=== PATIENT | male | born 1950 | race Caucasian/White ===

== ENCOUNTER 2016-10-01 16:44 | Inpatient (IN) ==
[2016-10-01] MEDS ORDERED: ASPIRIN 325 MG TABLET PO STA (17:05)
--- NOTE | 2016-10-01 17:08 | EKG Report ---
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
--- NOTE | 2016-10-01 17:08 | EKG Report ---
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
[2016-10-01] MEDS ORDERED: ASPIRIN 325 MG TABLET ONE (17:13)
[2016-10-01] MEDS ORDERED: DILTIAZEM 50 MG/10 ML VIAL IV STA (17:13)
[2016-10-01 17:30] LABS: Basophils % 0.4 % (0.0-0.8); Eosinophils # 0.1 10*3/uL (0.0-0.87); Eosinophils % 0.9 % (0.00-10.9); Hematocrit 45.8 VOL% (42.0-52.0); Hemoglobin 15.9 GM/DL (14.0-18.0); Immature Granulocytes % 0.4 %; Immature Granulocytes Absolute 0.05 #; Lymphocytes # 1.7 10*3/uL (1.4-4.0); Lymphocytes % 14.9 % (21.2-54.2); Mean Corpuscular HGB Conc 34.7 GM/DL (32-36); Mean Corpuscular Hemoglobin 32 PG (27-34); Mean Corpuscular Volume 91.2 FL (87-102); Mean Platelet Volume 10.5 FL (9.6-12.0); Monocytes # 0.7 10*3/uL (0.11-0.8); Monocytes % 6.3 % (1.7-12.7); Neutrophils # 8.7 10*3/uL (1.4-7.4); Neutrophils % 77.1 % (38.7-73.9); Platelet Count 199 10*3/uL (130-400); Red Blood Count 5.02 10*6/uL (3.8-5.5); Red Cell Distribution Width 12.5 % (9.3-17.3); White Blood Count 11.2 10*3/uL (4.5-13.71)
[2016-10-01] MEDS ORDERED: DILTIAZEM 50 MG/10 ML VIAL IV ONE (17:49)
[2016-10-01 17:57] LABS: Calcium 9.2 MG/DL (8.5-10.1); Osmolality,Calculated 297.3 MOS/KG (273-304); Potassium 4.6 MMOL/L (3.5-5.1)
[2016-10-01] MEDS ORDERED: ENOXAPARIN 100 MG/ML SYRINGE SUBCUT STA (18:11)
--- NOTE | 2016-10-01 18:13 | EKG Report ---
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
[2016-10-01] MEDS ORDERED: MAGNESIUM SULF RIDER 4 GM in PREMIX 1 EACH IV PRN (18:14)
[2016-10-01] MEDS ORDERED: MAGNESIUM SULF RIDER 2 GM in PREMIX 1 EACH IV PRN ×2 (18:14→22:56)
[2016-10-01] MEDS ORDERED: MORPHINE 2 MG/1 ML SYRINGE IV PRN (18:14)
[2016-10-01] MEDS ORDERED: ONDANSETRON 4 MG/2 ML VIAL IV PRN (18:14)
--- NOTE | 2016-10-01 18:14 | Emergency Department Note ---
IEstela Kasabria, am scribing for, and in the presence of, Marcos Santa M.D. 17:18. IKiet Howard T, M.D., personally performed the services described in this documentation, ascribed by Kareem Palmer in my presence, and it is both accurate and complete [id number] . Arrival - Arrival Chief Complaint: Chest Pain Stated Complaint: CHEST PAINS ED Nursing Triage Note: Pt c/o chest pain that started in his back and radiates through to his chest since yesterday. Denies SOB Mode of Arrival: Ambulatory Limitations: No Limitations Source: Patient Time Seen by Provider: 10/01/16 17:04 - History of Present Illness HPI Narrative: This is a 65 y/o white male presenting to the ED with c/o back pain between his shoulder blades that radiates to his midsternal chest. He states the pain onset yesterday. He went to play golf and the pain went away. When he woke up this morning the pain onset again. Pt states he feels better after burping. He denies fever, chills, nausea, vomiting, diarrhea, abdominal pain, [place], vision change, dysuria, and pedal edema. Pt has diabetes and HTN which he is compliant on his medications. Consistency: constant Severity: moderate Allergies/Adverse Reactions: Allergies Allergy/AdvReac Type Severity Reaction Status Date / Time No Known Allergies Allergy Verified 10/01/16 16:48 Home Medications: Home Medications Medication Instructions Recorded Confirmed Type Aspirin EC Tab 81 mg PO DAILY 10/01/16 10/01/16 History Bupropion HCl [Bupropion Xl] 150 mg PO DAILY 10/01/16 10/01/16 History Diltiazem HCl [Diltiazem ER (24 240 mg PO DAILY 10/01/16 10/01/16 History hr)] Simvastatin 80 mg PO DAILY 10/01/16 10/01/16 History metFORMIN [Glucophage] 1,000 mg PO BID W/MEALS 10/01/16 10/01/16 History Review of System - Review of System 12 point system: reviewed and no additional remarkable complaints except as stated - Review of System Constitutional: Absent: chills, fever, weakness Eyes: Absent: vision change Head/Ears/Nose/Throat: Absent: earache, nasal drainage Respiratory: Absent: cough, wheezing Cardiovascular: Present: chest pain (midsternal ). Absent: dyspnea on exertion , syncope Gastrointestinal: Absent: abdominal pain, nausea, vomiting, diarrhea Genitourinary male: Absent: dysuria Musculoskeletal: Present: back pain, upper back pain (between shoulder blades ) . Absent: arm pain Skin: Absent: rash Neurological: Absent: headache, weakness, numbness, confusion, abnormal gait, vertigo Psychiatric: Absent: anxiety Endocrine: Absent: fatigue Hematological/Lymphatic: Absent: easy bleeding Allergic/Immunologic: Absent: facial swelling Medical,Surgical,& Family Hx - Medical History Cardio: History of: Hypertension Endocrine: History of: Diabetes Mellitus (NIDDM), Dyslipidemia - Family History Family History: Reports;: Family Heart Disease - Social History Smoking Status: Never smoker Exam Vital Signs: Vital Signs Temperature 96.7 F L 10/01/16 17:44 Pulse Rate 111 H 10/01/16 17:44 Respiratory Rate 20 10/01/16 17:44 Blood Pressure 174/119 10/01/16 17:44 O2 Sat by Pulse Oximetry 100 10/01/16 17:30 - General General appearance: alert, in no apparent distress - Head Head exam: Present: atraumatic, normocephalic, normal inspection - Eye Eye exam: Present: normal appearance, PERRL, EOMI - ENT ENT exam: Present: normal exam, normal oropharynx, mucous membranes moist, TM's normal bilaterally, normal external ear exam - Neck Neck exam: Present: normal inspection, full ROM, tenderness. Absent: trachea midline - Chest Chest inspection: Present: normal inspection, symmetric chest wall rise. Absent : tenderness - Respiratory Respiratory exam: Present: normal lung sounds bilaterally - Cardiovascular Cardiovascular exam: Present: normal rhythm, tachycardia, normal heart sounds. Absent: regular rate - Abdominal Exam Abdominal exam: Present: soft, normal bowel sounds. Absent: distention, tenderness, guarding - Extremities Exam Extremities exam: Present: normal inspection, full ROM, normal capillary refill. Absent: tenderness, pedal edema, calf tenderness - Back Exam Back exam: Present: normal inspection, full ROM. Absent: tenderness - Neurological Exam Neurological exam: Present: alert, oriented X3, CN II-XII intact, normal gait, reflexes normal - Psychiatric Psychiatric exam: Present: normal affect, normal mood - Skin Skin exam: Present: warm, dry, intact, normal color. Absent: rash Course Course Narrative: Medical decision making: Patient's heart rate improved after calcium channel lindsey however elevated troponin suggests an NSTEMI. Discussed with Dr. Falcon who recommended admission to cardiology with Lovenox, beta lindsey, MONTSERRAT inhibitor. - Reevaluation(s) Reevaluation #1: repeat EKG, rate 101, still Afib, ST depression V3 Results - Labs CBC & BMP: 10/01/16 17:25 10/01/16 17:25 Lab Results: I have reviewed the patients labs Labs: Trop 11.2 - EKG EKG results: interpreted by RADHA, normal QRS EKG shows: tachycardia, atrial fibrillation Disposition Clinical Impression: Chest pain, NSTEMI (non-ST elevated myocardial infarction), Atrial fibrillation Case discussed with: patient, patient's family Disposition: Disch/Xfer-Ipshort Term Hos Condition: Guarded Time of Disposition: 18:14
--- NOTE | 2016-10-01 18:15 | XRay Report ---
XR chest 2V Indication: Chest pain. Comparison: None. Technique: PA and lateral chest x-ray was performed. Findings: The heart size is within normal limits. The mediastinal contour demonstrates no significant abnormality. The lungs are clear. Bones and soft tissues demonstrate no acute abnormality. Impression: 1. No active cardiopulmonary disease. 10/01/2016 6:11 PM PROCEDURE INTERPRETED AT [facility] DEPARTMENT OF RADIOLOGY Final Report Signed by: Dr. Galdino James
[2016-10-01] MEDS ORDERED: METOPROLOL TARTRATE 50 MG TABLET PO STA (18:18)
[2016-10-01] MEDS ORDERED: SODIUM CHLORIDE 0.45% 1,000 ML IV SCH (18:30)
[2016-10-01] MEDS ORDERED: NITROGLYCERIN SL 0.4 MG TABLET SL ONE (19:42)
[2016-10-01] MEDS ORDERED: NITROGLYCERIN SL 0.4 MG TABLET SL STA (19:47)
[2016-10-01] MEDS ORDERED: LIDOCAINE 1% 20 ML VIAL ONE (22:54)
[2016-10-01] MEDS ORDERED: POTASSIUM CHLORIDE RIDER 10 MEQ in PREMIX 1 EACH IV PRN (22:56)
[2016-10-01] MEDS ORDERED: MIDAZOLAM 2 MG/2 ML VIAL ONE (23:02)
[2016-10-01] MEDS ORDERED: fentaNYL 100 MCG/2 ML VIAL ONE (23:02)
--- NOTE | 2016-10-01 23:03 | Cardiology History & Physical ---
Assessment and Plan (1) NSTEMI (non-ST elevated myocardial infarction) Status: Acute Assessment and plan: 7. Progressive increased troponins. His ECG without acute changes. Patient is current catheterization discussed above. Current Visit: Yes (2) Chest pain Status: Acute Assessment and plan: Chest pain this intermittent. It is worsened tonight because troponins are increased. Think he needs Percocet has coronary intervention hopefully tonight. He agrees to carry catheterization. Current Visit: Yes (3) Hypertension Status: Acute Assessment and plan: We'll continue his home medications and manage his blood pressure status. Current Visit: Yes (4) Diabetes mellitus Status: Acute Assessment and plan: Continue with therapy will put on sliding-scale. Current Visit: Yes Qualifiers: Diabetes mellitus type: type 2 (5) Dyslipidemia Status: Acute Assessment and plan: He has been on simvastatin. We'll need to check this. Current Visit: Yes (6) Atrial fibrillation Status: Acute Assessment and plan: Duration is unknown. We'll treat accordingly. Current Visit: Yes History of Present Illness Chief complaint: chest pain History of present illness: Mr. Alcala is a 65 year old male who presented done earlier to the [facility] emergency room with pain chest pain. He was found to be in atrial fibrillation but no acute ECG changes.. He was stable with slightly increased troponin. The patient is not having chest pains that time he was admitted for evaluation. Denied prior to my seeing him he is had more severe chest pain is 7 out of 10 in his troponin is increased higher to 18.1. Because of this it was felt that he should have cart catheterization. Actually his pain started yesterday and mid back resolved. This morning after getting up around 8 a.m. he had back pain radiating to his chest. He had no radiating pains. This time he is having minimal pain. He's had no prior chronic history cardiac testing. Needs cart catheterization emergently causes continued pain and increasing troponin. Discussed cardiac catheterization with he and the family including the indication procedure have be carried out in the wrist. I discussed cardiac catheterization and percutaneous coronary intervention with the patient and available family. I reviewed with them the indications for the procedure and the basis of how the procedure would be carried out. I also reviewed with them the risk of the procedure which include but not necessarily limited to access site bleeding, bruising, pain, swelling or vascular injury that may require emergency vascular surgery, blood transfusion, or thrombin injection. Also discussed the possibility of stroke, myocardial infarction, arrhythmia which may require electrocardioversion, and the possibility of dye reaction that would require medical therapy. Also discussed the possibility of coronary artery injury, ruptured, closure or perforation that may require emergency bypass surgery. We also discussed the possibility of from a major complication. They voice understanding and agree to proceed. Home Medications Medication Instructions Recorded Confirmed Type Aspirin EC Tab 81 mg PO DAILY 10/01/16 10/01/16 History Bupropion HCl [Bupropion Xl] 150 mg PO DAILY 10/01/16 10/01/16 History Diltiazem HCl [Diltiazem ER (24 240 mg PO DAILY 10/01/16 10/01/16 History hr)] Simvastatin 80 mg PO DAILY 10/01/16 10/01/16 History metFORMIN [Glucophage] 1,000 mg PO BID W/MEALS 10/01/16 10/01/16 History Allergies Allergy/AdvReac Type Severity Reaction Status Date / Time No Known Allergies Allergy Verified 10/01/16 16:48 Review of systems: Constitutional: Denies anorexia, chills, fatigue, fever, frequent falls, night sweats, weight gain, weight loss Eyes: Denies visual changes or loss of vision Ears: Denies decreased hearing, vertigo Nose, mouth and throat: Denies dysphagia, epistaxis, headaches, neck pain, tongue swelling, Neck: Denies thyromegaly or masses. No stiffness. Cardiovascular: as per HPI Respiratory: Denies cough, dyspnea, hemoptysis, dyspnea on exertion, wheezing, snoring Gastrointestinal: Denies abdominal pain, constipation, dyspepsia, dysphagia, hematemesis, hematochezia, melena, nausea, vomiting Genitourinary: Denies dysuria, hematuria, nocturia Musculoskeletal: Denies arthralgias, joint swelling, muscle weakness, myalgias Neurological: denies abnormal gait, abnormal speech, confusion, convulsions, frequent falls, headaches, memory loss, syncope Psychiatric: Denies anxiety, confusion, depression Endocrine: Denies cold intolerance, fatigue, heat intolerance Hematologic/Lymphatic: Denies easy bleeding, easy bruising Dermatologic: Denies Rash, itching, shingles Medical,Surgical,& Family Hx - Medical History Cardio: History of: Hypertension Endocrine: History of: Diabetes Mellitus (NIDDM), Dyslipidemia - Family History Family History: Reports;: Family Heart Disease - Social History Smoking Status: Never smoker Frequency of Alcohol Use: None Type of Drug Use: None Marital Status: Lives With:: Spouse Functional capacity: independent ambulation Cardiology Physical Exam - Constitutional Vitals: Vital Signs Temp Pulse Resp BP Pulse Ox 96.7 F L 81 18 102/62 98 10/01/16 17:44 10/01/16 20:20 10/01/16 20:20 10/01/16 20:20 10/01/16 20:20 Exam: General appearance: normal weight, no acute distress Head exam: normal inspection, atraumatic Eye exam: Pupils are equal and reactive. EOMI. There is no trauma. Ear exam: Anatomically normal. Normal auditory acuity to conversation. Oral exam: No significant oral lesions. Neck exam: normal inspection no JVD. No carotid bruit. Trachea is in midline. Respiratory exam: clear to auscultation bilaterally posteriorly and anteriorly with good air movement. No rales, rhonchi or wheezes. Cardiovascular exam: regular rate and rhythm, no murmur or gallop or rub. No precordial lift. No bruits over the major arteries. Chest wall/torso: Anatomically normal. No tenderness, deformity Peripheral Pulses: 2+ throughout. GI/Abdominal exam: normal bowel sounds, soft and nontender, no abdominal bruits or pulsatile masses. Musculoskeletal/Extremities exam: normal inspection without edema or cyanosis. No deformities or trauma. Neurological exam: alert, oriented X3. There is no gross neurologic deficits. Psychiatric exam: normal affect, normal mood. Cognitive function is grossly intact. Skin exam: normal color, warm. No rashes or other skin lesions. Result/EKG - Labs CBC & BMP: 10/01/16 17:25 10/01/16 17:25 Lab Results: I have reviewed the past 24 hour labs (elevated troponin) Labs: Laboratory Results - last 24 hr 10/01/16 20:35 Troponin I 18.100 H D - Impressions Impressions: ECG for atrial fibrillation without acute ischemic changes.
--- NOTE | 2016-10-01 23:09 | History and Physical Update ---
Sedation H&P Update - History and Physical H&P was reviewed, the patient examined and there: are no changes in the patients condition since last H&P was completed. - Dictation Physical: refer to scanned H&P, refer to H&P completed by admitting physician - Physical Exam Mental Status: alert and oriented Heart: regular rate and rhythm Lung: clear to auscultation Abdomen: within normal limits Vitals: within normal limits History and Physical Changes: None. - Sedation Plan for Sedation: moderate Patient Consent: Procedure disscussed with patient and patinet has consented., Risks and benefits were discussed with patient,including infection,, bleeding, injury to surrounding structures, seizure, temporary nerve, Patient understands and accepts potential risks/benefits and agrees to, proceed. ASA Class: IV Airway Assessment: Class III: Soft palate, base of uvula visible
[2016-10-01] MEDS: LISINOPRIL 5 MG TABLET PO SCH (23:12)
[2016-10-01] MEDS: METOPROLOL TARTRATE 50 MG TABLET PO SCH (23:12)
[2016-10-01] MEDS ORDERED: diphenhydrAMINE CAP 25 MG CAPSULE PO ONE (23:30)
[2016-10-01] MEDS ORDERED: DIAZEPAM 5 MG TABLET PO ONE (23:30)
[2016-10-01] MEDS ORDERED: TIROFIBAN 5,000 MCG/100 ML PREMIX IV ONE (23:40)
[2016-10-02] MEDS ORDERED: GLUCAGON 1 MG VIAL IM PRN ×2 (00:26→15:49)
[2016-10-02] MEDS ORDERED: DEXTROSE 50% 25 GM/50 ML VIAL IV PRN ×2 (00:26→15:49)
[2016-10-02] MEDS ORDERED: HYDROmorphone 2 MG/1 ML VIAL IV PRN (00:26)
[2016-10-02] MEDS ORDERED: ACETAMINOPHEN 325 MG TABLET PO PRN (00:26)
[2016-10-02] MEDS ORDERED: TICAGRELOR 90 MG TABLET ONE (00:27)
[2016-10-02] MEDS ORDERED: SODIUM CHLORIDE 0.9% 1,000 ML IV SCH (00:30)
[2016-10-02] MEDS ORDERED: TIROFIBAN 5,000 MCG/100 ML PREMIX IV SCH ×2 (00:35→23:46)
--- NOTE | 2016-10-02 00:39 | Operative Note ---
Date of procedure: 10/02/16 Procedure Preformed: Left heart catheterization coronary angiography. No LV gram was carried out. PCI with stent placement in 2 locations of the RCA. Surgeon / Physician: Bennie Falcon Post-op diagnosis: same Findings: High-grade coronary disease of the RCA successful PCI. Please see full report. Specimens: none sent Estimated blood loss: minimal Condition: stable Anesthesia: local, conscious sedation Disposition: floor
--- NOTE | 2016-10-02 00:43 | Cardiac Catheterization ---
Date of Procedure:: 10/02/16 Pre-op Diagnosis: Non-ST segment elevation myocardial infarction. Post-op diagnosis: same Procedure: LEFT HEART CATHERIZATION History: 65-year-old man with back and chest pain with elevated troponins. He' s had persistent chest pain. Pre-Op diagnosis: Non-ST segment elevation myocardial infarction, coronary artery disease. Postoperative diagnosis: Same Procedures: 1. Left heart catheterization. 2. Left ventricular angiogram. 3. Selective left and right coronary angiograms. 4. Percutaneous coronary intervention with stents in RCA 5.. Right common femoral artery angiogram with Angio-Seal hemostasis. Equipment: 6 Libyan arterial sheath, 6 Libyan diagnostic pigtail catheter, JL4 and JR4 diagnostic catheters. A 6 Libyan Angio-Seal hemostatic device. For percutaneous coronary intervention: JR4 PTCA guiding catheter, the water flexed PTCA guidewire, Xenith Bankla intracoronary guide catheter, 2.5 x 15 mm Rx apex balloon, 3.0 x 16 mm Synergy GABE, a second 3.0 x 16 mm Synergy GABE Medications: Preoperative Benadryl and Valium given by mouth. Lidocaine 1% local anesthesia 10 mls administered by myself. Intraprocedure patient received Versed 1 milligrams IVP, fentanyl 50 micrograms IVP. For PCI: Aggrastat bolus 50 mL IIVAggrastat infusion,17.3 mL/hour, Brilinta 180 mgms. Complications: None immediate. Contrast: Omnipaque 250 milliliters. Description of procedure: After informed consent the patient was given preoperative medications and brought to the catheterization laboratory where their right groin was prepped and draped in usual fashion. IV sedation was then obtained after which local anesthesia was administered at the right groin over the right common femoral artery. Using modified Seldinger technique the right common femoral artery was cannulated with 6 Libyan arterial sheath placed. The JL4 diagnostic coronary catheter was then advanced through the sheath in a retrograde approach and used to cannulate the left coronary artery of which angiograms were obtained in multiple projections. This catheter was then removed. The JR 4 diagnostic coronary catheter was then advanced retrograde through the aorta and used to measure left ventricular pressures were put percent aortic root and then to cannulate the right coronary artery of which angiograms were obtained in multiple projections. (Actually the right coronary was examined before the left coronary system). Angiograms were then reviewed. The right coronary catheter was pulled back into the sheath where a right common femoral artery angiogram was obtained after which the catheter was removed. Intervention of the RCA then was carried out with advancing the JR4 guide catheter through which a pro-water flexed guidewires advanced crossing the distal stenosis into the distal RCA. The apex 2.5 x 15 mm apex balloon was then advanced across the distal total stenosis and 4 inflations was carried out in this area and into what was a PDA/PL branch. Peak pressure was 14 rebecca with the longest inflation time of 32 seconds. This balloon was removed and we attempted to advance a 3.0 x 16 mm Synergy GABE but was unable to pass what was a more proximal mid area tortuosity calcification. He was also noted that there was probably say percent stenosis in the mid RCA. We used a 2.5 x 15 m apex balloon To inflations to a maximum pressure of 20 rebecca for mass inflation time of 30 seconds. We again attempted to advance the 3.0 x 16 mm Synergy GABE to the distal RCA and felt again to do so. At this time we asked advanced a Guidezilla PTCA guide catheter into the RCA. We will then able to advance the 3.0 x 16 mm surgery GABE and deployed this across the distal RCA stenosis to 14 rebecca for 25 seconds. We then used this balloon pulled back into the mid RCA stenosis. At 12 atmospheric inflation for 28 seconds. We then did stasis and advanced another 3.6 x 16 mm Synergy GABE and deployed this in the mid RCA for 16 rebecca for 30 seconds. At this time final angiograms were obtained. The guidewire as well as the Guidezilla and balloon catheter were removed. While angiograms were obtained. Angio-Seal hemostasis was carried out of the right common for artery. Hemodynamic data: LV 142/-21 , EDP 6 ; AO root 138/82 , mean 100 . Left ventricular angiogram: Not done to conserve contrast with his elevated creatinine. Left main coronary artery angiogram: Left main coronary was a large caliber vessel that bifurcated LAD and circumflex arteries. He was without stenosis. Left anterior descending artery angiogram: The LAD was a medium large size vessel proximally. It extended to the posterior apex were tapered into a much smaller vessel. Diagonal branches are small caliber vessels. There is little irregularities less than 10% stenosis present. Circumflex artery angiogram: Circumflex artery proximally was a large caliber vessel. It is nondominant vessel. First obtuse marginal branch and a medium large size vessel bifurcating. Beyond this is a artery terminated in atrial branch and a small medium caliber obtuse marginal branch. There was probably some calcification and cervix artery and luminal irregularities in the circumflex artery proper especially proximally. One branch of the first obtuse marginal branch had less than 50% stenosis. Right coronary artery angiogram: RCA was a medium caliber vessel and dominant. There is diffuse calcification and it was somewhat tortuous. Mid vessel is a 70 % stenosis with EVELYN 2 flow. Distally the RCA was totally occluded with EVELYN 0 flow. PCI of RCA: The mid lesion say percent was dilated as described above to 0% residual stenosis. Initial EVELYN 2 flow with a residual of EVELYN-3 flow. The distal total 100% occlusion and 0 point EVELYN flow had a residual of 0% stenosis and EVELYN-3 flow. Right common femoral artery angiogram: Right common for artery is widely patent bifurcating superficial femoral artery and profundus branch. Sheath was inserted in the common for artery. Impression: 1. Left ventricular angiogram not done. 2. LVEDP is normal at 6 mmHg 3. There is no gradient across the aortic valve. 4. Left main coronary is widely patent without stenosis. 5. LAD with less than 10% stenosis. 6. Circumflex artery will irregularities and mild calcification. One branch of the first obtuse marginal branch less than 50% stenosis. 7. RCA is dominant with diffuse calcification, 70% mid stenosis with EVELYN 2 flow, a distal stenosis of 100% with EVELYN 0 flow. 8. Successful PCI and stent placement in the mid RCA with say percent lesion dilated 0% residual stenosis and EVELYN-3 flow residual. 9. Successful PCI and stent placement in the distal RCA of total occlusion dilated 07 residual stenosis and initial 0% EVELYN flow with a residual of EVELYN-3 flow. 10. Successful Angio-Seal hemostasis. Discussion: Will monitor the patient after catheterization intervention. Risk factor modification a course of need to carry out. Implants: See above. Anesthesia: local, moderate conscious sedation Surgeon / Physician: Bennie Falcon Dog Obedience Instructor: other (Estephania Peterson) Estimated blood loss: minimal Specimens: none sent Condition: stable Disposition: floor - Medications / Follow-up
[2016-10-02 05:13] LABS: Basophils % 0.2 % (0.0-0.8); Eosinophils % 0.4 % (0.00-10.9); Hematocrit 42.7 VOL% (42.0-52.0); Hemoglobin 14.7 GM/DL (14.0-18.0); Immature Granulocytes % 0.3 %; Immature Granulocytes Absolute 0.03 #; Lymphocytes # 0.8 10*3/uL (1.4-4.0); Lymphocytes % 9.4 % (21.2-54.2); Mean Corpuscular HGB Conc 34.4 GM/DL (32-36); Mean Corpuscular Hemoglobin 31 PG (27-34); Mean Corpuscular Volume 90.3 FL (87-102); Mean Platelet Volume 10.3 FL (9.6-12.0); Monocytes # 0.8 10*3/uL (0.11-0.8); Monocytes % 8.8 % (1.7-12.7); Neutrophils # 7.2 10*3/uL (1.4-7.4); Neutrophils % 80.9 % (38.7-73.9); Platelet Count 183 10*3/uL (130-400); Red Blood Count 4.73 10*6/uL (3.8-5.5); Red Cell Distribution Width 12.6 % (9.3-17.3)
[2016-10-02 05:50] LABS: Risk Ratio 4.13; VLDL CHOLESTEROL 58.2 MG/DL
[2016-10-02 05:56] LABS: Calcium 8.5 MG/DL (8.5-10.1); Osmolality,Calculated 290.5 MOS/KG (273-304); Potassium 4.3 MMOL/L (3.5-5.1)
[2016-10-02 06:16] LABS: CKMB % 6.8 %
[2016-10-02 06:22] LABS: Troponin I Only 42.4 NG/ML (0.00-0.045)
--- NOTE | 2016-10-02 07:49 | EKG Report ---
Stationary ECG Study [facility] Test Date: 10/02/2016 7:48:12 AM Pat Name: JUAN SANTOS Department: Room: 277 Gender: M Student Counselor: CHUY : 1950 Requested by: Marcos López Order Number: [id number] Reading MD: EMILY ZIEGLER Intervals [place] Rate: 89 P: 999 [place]: 0 QRS: 40 QRSD: 106 T: 243 QT: 370 QTc: 417 Interpretive Statements ATRIAL FIBRILLATION at [address] DEVIATION AND MODERATE T-WAVE ABNORMALITY, CONSIDER ANTERIOR ISCHEMIA Electronically Signed On 10-02-16 12:22:18 MARKET DIRECTOR by EMILY ZIEGLER [id number]
[2016-10-02] MEDS ORDERED: ASPIRIN EC 81 MG TABLET PO SCH (09:00)
[2016-10-02] MEDS ORDERED: SIMVASTATIN 80 MG TABLET PO SCH (09:00)
[2016-10-02] MEDS: ASPIRIN EC 81 MG TABLET PO SCH (10:22)
[2016-10-02] MEDS: DILTIAZEM CD 240 MG CAPSULE PO SCH (10:23)
[2016-10-02] MEDS: PANTOPRAZOLE 40 MG TABLET PO SCH (10:23)
[2016-10-02] MEDS: buPROPion XL 150 MG TABLET PO SCH (10:24)
[2016-10-02] MEDS: METOPROLOL TARTRATE 50 MG TABLET PO SCH ×2 (10:25→21:43)
[2016-10-02] MEDS: LOSARTAN 25 MG TABLET PO SCH (10:25)
[2016-10-02] MEDS: LISINOPRIL 5 MG TABLET PO SCH (10:26)
[2016-10-02] MEDS: TICAGRELOR 90 MG TABLET PO SCH ×2 (10:26→21:42)
[2016-10-02] MEDS: ENOXAPARIN 100 MG/ML SYRINGE SUBCUT SCH ×2 (10:29→21:43)
--- NOTE | 2016-10-02 11:32 | History and Physical Update ---
Sedation H&P Update - History and Physical H&P was reviewed, the patient examined and there: are no changes in the patients condition since last H&P was completed. - Dictation Physical: refer to H&P completed by admitting physician - Physical Exam Mental Status: alert and oriented Heart: regular rate and rhythm Lung: clear to auscultation Abdomen: within normal limits Vitals: within normal limits - Sedation Plan for Sedation: moderate Patient Consent: Procedure disscussed with patient and patinet has consented., Risks and benefits were discussed with patient,including infection,, bleeding, injury to surrounding structures, seizure, temporary nerve, Patient understands and accepts potential risks/benefits and agrees to, proceed. ASA Class: II Airway Assessment: Class II: Soft palate, uvula, fauces visible
--- NOTE | 2016-10-02 16:02 | Cardiology Progress Note ---
I, Cassandra Farias RN, am scribing for, and in the presence of, Bennie Falcon MD 15:54. Assessment and Plan (1) Chest pain Status: Resolved Assessment and plan: Chest pain resolved after heart cath. This is stable and probably secondary to his coronary disease. This note is his diuresis. Current Visit: Yes (2) NSTEMI (non-ST elevated myocardial infarction) Status: Acute Assessment and plan: Patient is status post PCI with two drug eluding stents to RCA. Current Visit: Yes (3) Atrial fibrillation Status: Acute Assessment and plan: New onset Atrial fib with a controlled ventricular rate. Will adjust medications as necessary. Duration is actually unknown since the patient is asymptomatic with this. I think we will need to have the patient medically atrial fibrillation for at least 3 weeks and started on antiarrhythmic thereafter. We'll start Xarelto 10 mg by mouth daily with is doing to platelet therapy. Current Visit: Yes (4) Hypertension Status: Chronic Assessment and plan: Will restart home medications, and adjust as needed. Blood pressure is stable at this time. Current Visit: Yes (5) Diabetes mellitus Status: Chronic Assessment and plan: Glucose monitoring controlled is off his metformin post catheterization. We will place the patient on sliding scale. Current Visit: Yes Qualifiers: Diabetes mellitus type: type 2 (6) Dyslipidemia Status: Chronic Assessment and plan: LDL and triglycerides are elevated, will adjust medications. Will switch him from simvastatin to Crestor. He is not managed adequately with this new medication we may have to add Zetia. Current Visit: Yes Cardiology - PN: Subj Interval history: Patient personally interviewed and examined by me in chart reviewed. Patient is status post heart cath with two drug eluding stents to the RCA last night. Patient is without complaints this morning. He denies chest pain, shortness of breath and right groin is stable without bruising or bleeding. He remains in Atrial fib with a controlled ventricular rate. He states that he had no prior history of irregular heart rhythm. Echo is pending. Current medications: Losartan 12.5 mg Daily, Lisinipril 5mg BID, Lovenox 100mg BID, Wellbutrin 150 mg Daily, Lopressor 50 mg BID, Cardizem CD 240 mg daily, Simvastatin 80 mg daily, Aspirin 81 mg daily, Brilinta 90 mg BID, and Protonix 40 mg Daily. The patient really has no complaints and I suspect his atrial fibrillation may have actually be of longer duration since he has no palpitations with it is asymptomatic. We will need to treat this by think he should be on anticoagulation for at least 3+ weeks prior to starting an antiarrhythmic. We will await his echocardiogram results. His glucoses were a little high. I'll thought he would be on sliding scale from last night though it or that patient's is his dextrose and glucagon are ordered as part of that scale ordered. Anyway we'll make sure that is ordered. The patient's ECG shows atrial fibrillation controlled ventricular response with nonspecific ST-T abnormalities. Exam (Progress Note) - Constitutional Vitals: Period Temp Pulse Resp BP Sys/Rcuz Pulse Ox Last 24 Hr -98.7 F-98.7 F 76-102 15-21 102-156/62-105 98-100 General appearance: no acute distress - Head Head exam: Present: normal inspection, normocephalic - Respiratory Respiratory exam: Present: clear to auscultation bilaterally. Absent: rales, rhonchi, wheezes - Cardiovascular Cardiovascular exam: Present: irregular rhythm (aftrial fib with a CVR. ). Absent: gallop, systolic murmur - GI/Abdominal GI/Abdominal exam: Present: normal bowel sounds, soft. Absent: tenderness - Extremities Exam Extremities exam: Present: normal inspection, normal capillary refill, other ( right groin is stable, without bruising or bleeding. Distal pulses 2+. ). Absent: edema - Neurological Exam Neurological exam: Present: alert, oriented X3 - Psychiatric Psychiatric exam: Present: normal affect, normal mood - Skin Skin exam: Present: normal color, warm, dry Result/EKG - Labs CBC & BMP: 10/02/16 04:57 10/02/16 04:57 Lab Results: I have reviewed the past 24 hour labs (patient's CPK and troponins are increased. His chemistries are otherwise unremarkable stable. Glucose is elevated some.) Labs: Laboratory Results - last 24 hr 10/01/16 10/01/16 10/02/16 20:35 23:07 04:57 WBC RBC Hgb Hct MCV MCH MCHC RDW Plt Count MPV Neut % (Auto) Lymph % (Auto) Mccormick % (Auto) Eos % (Auto) Baso % (Auto) Neut # (Auto) Lymph # (Auto) Mccormick # (Auto) Eos # (Auto) Baso # (Auto) Immature Gran % Nucleated RBC % Immature Gran # Nucleated RBCs # Sodium Potassium Chloride Carbon Dioxide Anion Gap BUN Creatinine GFR Calculation BUN/Creatinine Ratio Glucose Calculated Osmolality Calcium Total Creatine Kinase CK-MB (CK-2) CK and CKMB Interp Troponin I 18.100 H D 20.700 H Triglycerides 291 H Cholesterol 194 LDL Cholesterol 121.0 VLDL Cholesterol 58.2 HDL Cholesterol 47 Heart Disease Risk Ratio 4.13 10/02/16 10/02/16 10/02/16 04:57 04:57 04:57 WBC 9.0 RBC 4.73 Hgb 14.7 Hct 42.7 MCV 90.3 MCH 31 MCHC 34.4 RDW 12.6 Plt Count 183 MPV 10.3 Neut % (Auto) 80.9 H Lymph % (Auto) 9.4 L Mccormick % (Auto) 8.8 Eos % (Auto) 0.4 Baso % (Auto) 0.2 Neut # (Auto) 7.2 Lymph # (Auto) 0.8 L Mccormick # (Auto) 0.8 Eos # (Auto) 0.0 Baso # (Auto) 0.0 Immature Gran % 0.3 Nucleated RBC % 0.0 Immature Gran # 0.03 Nucleated RBCs # 0.00 Sodium 139 Potassium 4.3 Chloride 105 Carbon Dioxide 22 Anion Gap 16.3 H BUN 12 Creatinine 1.00 GFR Calculation 101 BUN/Creatinine Ratio 12.00 Glucose 352 H Calculated Osmolality 290.5 Calcium 8.5 Total Creatine Kinase 501 H CK-MB (CK-2) 34.0 H CK and CKMB Interp 6.8 Troponin I 42.400 H D Triglycerides Cholesterol LDL Cholesterol VLDL Cholesterol HDL Cholesterol Heart Disease Risk Ratio - Impressions Impressions: ECG with atrial fibrillation controlled ventricular response not significant ST abnormalities. Telemetry with a compression controlled ventricular response. - EKG EKG results: interpreted by me EKG shows: atrial fibrillation Quality Measures - VTE Contraindication to Pharmacological VTE Prophylaxis: High Risk of Bleeding - Stroke Symptom Onset Unknown: No Specialty Discharge - Follow Up or Referrals - Discharge Medications No Action Simvastatin 80 mg PO DAILY Bupropion HCl [Bupropion Xl] 150 mg PO DAILY Diltiazem HCl [Diltiazem ER (24 hr)] 240 mg PO DAILY metFORMIN [Glucophage] 1,000 mg PO BID W/MEALS Aspirin EC Tab 81 mg PO DAILY IEzekiel John Timothy, MD, personally performed the services described in this documentation, ascribed by Cassandra Farias RN in my presence, and it is both accurate and complete .
[2016-10-02] MEDS ORDERED: RIVAROXABAN 10 MG TABLET PO SCH (17:00)
--- NOTE | 2016-10-02 19:16 | ECHO Report ---
[facility] [place] Exam Date: 10/02/2016 13:58 Referring Physician: Technologist: Azeb Miller RDCS Age: 65 Ht (in): Wt (lb): Gender: M Exam Location: [facility] Echo Indications: Non-ST elevation (NSTEMI) myocardial infarction, Chest pain, unspecified, Essential (primary) hypertension, NIDDM, Dyslipidemia, Atrial fibrillation, s/p Stents BP: / HR: Rhythm: atrial fibrillation Technical Quality: Fair IMPRESSIONS 1. Left ventricle is normal size and mild concentric left ventricular hypertrophy. Ejection fraction is 50%. 2. Right ventricle is normal size and function. 3. Left atrium is moderately dilated. 4. Right atrium is mildly dilated. 5. Aortic valves a tricuspid structure with mild sclerosing and without Doppler abnormalities. 6. Mild mitral annular calcification and mild regurgitation. 7. Tricuspid valve with mild regurgitation without evidence of elevated right-sided pressures. MEASUREMENTS (Male / Female) Normal Values 2D ECHO LV Diastolic Diameter PLAX 4.2 cm 4.2 - 5.9 / 3.9 - 5.3 cm LV Systolic Diameter PLAX 3.0 cm LV Fractional Shortening PLAX 28.3 % IVS Diastolic Thickness 1.5 cm 0.6 - 1.0 / 0.6 - 0.9 cm LVPW Diastolic Thickness 1.4 cm 0.6 - 1.0 / 0.6 - 0.9 cm RV Internal Dim ED PLAX 3.7 cm Aortic Root Diameter 3.7 cm LA Systolic Diameter LX 5.0 cm 3.0 - 4.0 / 2.7 - 3.8 cm DOPPLER TR Peak Velocity 228.0 cm/s TR Peak Gradient 20.8 mmHg FINDINGS Left Ventricle Normal left ventricular cavity size with mild left ventricular hypertrophy. Left ventricular ejection fraction is estimated at 50 %. Right Ventricle The right ventricle is normal in size and function. Right Atrium The right atrium is mildly enlarged. Left Atrium Moderately increased left atrial size. Mitral Valve Mild mitral annular and leaflet calcification with mild mitral regurgitation. Aortic Valve Mitral valves a tricuspid structure with normal excursion. There is mild sclerosing of the valve. There is no stenosis or insufficiency. Tricuspid Valve Morphologically normal tricuspid valve. Trace to mild tricuspid valve regurgitation. Tricuspid regurgitation velocities suggest a PAP of 31 mmHg. Pulmonic Valve Morphologically normal pulmonic valve. Trace pulmonary valve regurgitation. Pericardium Normal pericardium without effusion. Aorta Normal ascending aorta dimension. Bennie Falcon MD (Electronically Signed) Final Date: 02 October 2016 19:14
[2016-10-03 08:22] VITALS: BP 120/81
[2016-10-03] MEDS: ASPIRIN EC 81 MG TABLET PO SCH (08:53)
[2016-10-03] MEDS: buPROPion XL 150 MG TABLET PO SCH (08:53)
[2016-10-03] MEDS: PANTOPRAZOLE 40 MG TABLET PO SCH (08:54)
[2016-10-03] MEDS: LOSARTAN 25 MG TABLET PO SCH (08:54)
[2016-10-03] MEDS: DILTIAZEM CD 240 MG CAPSULE PO SCH (08:54)
[2016-10-03] MEDS: METOPROLOL TARTRATE 50 MG TABLET PO SCH (08:55)
[2016-10-03] MEDS: ENOXAPARIN 100 MG/ML SYRINGE SUBCUT SCH (08:55)
[2016-10-03] MEDS: TICAGRELOR 90 MG TABLET PO SCH (08:57)
--- NOTE | 2016-10-03 08:57 | Discharge Summary ---
Hospital Course - Hospital Course Hospital Course: Patient was admitted through the emergency room having had a one to two-day history of back and his chest pain. He short of breath with this. He was found in atrial fibrillation and was asymptomatic in the emergency room. His troponin was initially elevated but having no chest pain at the time. The patient after admission though developed more chest pain and his troponin increased. His ECG was without any acute changes for ischemia. His ventricular response and rate to his A. fib fibrillation with slightly increased. After admission the patient had recurrent severe episode of chest pain and taken catheterization laboratory emergently. There he was found to have is a percent mid RCA stenosis for which he went stenting. He had a 0% residual stenosis. The total occlusion distally with dilated and stented to 0% residual stenosis. He had EVELYN 3 flow. Postprocedure he had no further chest pain or back pain. Said no shortness of breath. He did well post procedure without groin issues. His troponin peaked at 42 and peak CPK of 501. He was placed on dual antiplatelet therapy. His total cholesterol 194 with elevated LDL and HDL 47. He was switched from simvastatin to Crestor 40 mg daily. Improve his lipid levels. He was also noted on admission to have atrial fibrillation with minimal increased heart rate above 100. He was placed on diltiazem with management of his rates. The beta lindsey this is help manage his rates as well. Since is unknown the true duration of his atrial fibrillation we will anticoagulate him for 3 weeks and then looking carrying out cardioversion pharmacologically first in the letter cardioversion. I discussed this with the patient his . The patient at time discharge stable without complaints. We discussed the findings of his catheterization and hospital course and her plans for treatment and follow-up. He will need to be seen in one week and probably 2 weeks after that. Second fall would be for evaluation start him on antiarrhythmic. - Time spent with patient Time with patient DS: Greater than 30 minutes Diagnosis - Discharge Diagnosis (1) Chest pain Status: Resolved (2) NSTEMI (non-ST elevated myocardial infarction) Status: Acute (3) Atrial fibrillation Status: Acute (4) Hypertension Status: Chronic (5) Diabetes mellitus Status: Chronic (6) Dyslipidemia Status: Chronic Specialty Discharge - Follow Up or Referrals - Discharge Medications No Action Simvastatin 80 mg PO DAILY Bupropion HCl [Bupropion Xl] 150 mg PO DAILY Diltiazem HCl [Diltiazem ER (24 hr)] 240 mg PO DAILY metFORMIN [Glucophage] 1,000 mg PO BID W/MEALS Aspirin EC Tab 81 mg PO DAILY Discharge Plan - Discharge Data Disposition: Disch To Home/Self Care Condition at Discharge: Stable Discharge Diet: diabetic diet Activity: other (low-level activities for the next week. Walking as tolerated.) Hygiene: no restrictions Weight Bearing at Discharge: full weight bearing Driving: not for (not for next 2448 hours.) Contact your physician if you experience:: Redness or swelling, Shortness of breath, Bleeding - Discharge Medications New Rivaroxaban [Xarelto] 10 mg PO DAILY W/SUPPER #30 tablet Losartan [Cozaar] 25 mg PO DAILY #30 tablet Metoprolol Tartrate Tab [Lopressor Tab] 50 mg PO BID #60 tablet Rosuvastatin [Crestor] 40 mg PO DAILY #30 tablet Ticagrelor [Brilinta] 90 mg PO BID #60 tablet Continue Bupropion HCl [Bupropion Xl] 150 mg PO DAILY Diltiazem HCl [Diltiazem ER (24 hr)] 240 mg PO DAILY metFORMIN [Glucophage] 1,000 mg PO BID W/MEALS Aspirin EC Tab 81 mg PO DAILY Discontinued Simvastatin 80 mg PO DAILY - Follow Up or Referral Follow Up: Bennie Falcon MD [Physician] - (1 week with ECG) - Forms/Instructions Instructions: Myocardial Infarction (GEN), Left Heart Catheterization (DC), Heart Healthy Diet (GEN), Coronary Intravascular Stent Placement (DC) Exam - Constitutional Vitals: Period Temp Pulse Resp BP Sys/Cruz Pulse Ox Last 24 Hr 96.9 F-98.9 F 79-96 16-20 112-127/64-88 94-100 Exam: General appearance: normal weight, no acute distress Head exam: normal inspection, atraumatic Eye exam: Pupils are equal and reactive. EOMI. There is no trauma. Ear exam: Anatomically normal. Normal auditory acuity to conversation. Neck exam: normal inspection no JVD. No carotid bruit. Trachea is in midline. Respiratory exam: clear to auscultation bilaterally posteriorly and anteriorly with good air movement. No rales, rhonchi or wheezes. Cardiovascular exam: regular rate but irregular rhythm, no murmur or gallop or rub. No precordial lift. No bruits over the major arteries. Chest wall/torso: Anatomically normal. No tenderness, deformity Peripheral Pulses: 2+ throughout. GI/Abdominal exam: normal bowel sounds, soft and nontender, no abdominal bruits or pulsatile masses. Musculoskeletal/Extremities exam: normal inspection without edema or cyanosis. No deformities or trauma. Neurological exam: alert, oriented X3. There is no gross neurologic deficits. Psychiatric exam: normal affect, normal mood. Cognitive function is grossly intact. Skin exam: normal color, warm. No rashes or other skin lesions. Discharge Results Procedures and tests throughout hospitalization: Cardiac catheterization reveals a percent mid RCA stenosis and a 70% dilated 0% residual. The distal total occlusion was dilated 0% residual. The left heart system has some luminal allergies. LV gram not done secondary to initial creatinine 1.6. Echocardiogram revealed left ventricular size to be normal with mild concentric left ventricular hypertrophy and ejection fraction 50%. Left atrium is moderately dilated. Right atrium is mildly dilated. No significant valve abnormalities. There was some mild mitral regurgitation and tricuspid regurgitation. Labs on day of discharge: Labs from last 24 hours 10/03/16 10/02/16 07:36 15:24 POC Glucose 295 H 429 H - Impressions Telemetry is atrial fibrillation with controlled ventricular response. - Imaging and Cardiology Cardiology Procedure: image reviewed by me, report reviewed by me DS: Provider Date of admission: 10/01/16 18:14 Primary care physician: . No PCP Attending physician on admission: Pricila Ellison Consults: 10/01/16 20:44 Consult to Pharmacy [CONS] Routine Reason for Pharmacy Consult: Adjust Meds Renal Funct 10/02/16 00:26 Consult to Cardiac Rehabilitation [CONS] Routine Reason for Cardiac Rehabilitation: Risk Factor Modification Home Exercise Program/[facility] Appt Out Pt Cardiac Rehab Discharging clinician: Pricila Ellison Expected date of discharge: 10/03/16
[2016-10-03] MEDS ORDERED: ROSUVASTATIN 20 MG TABLET PO SCH (09:00)
== END 2016-10-03 12:15 | disposition home or self-care (01) | DRG 247 ==
LOC: N.ED 16:44 → N.EDINP 18:14 → N.TELES 20:29
PROVIDERS: ADMIT Internal Medicine Cardiovascular Disease; ATTEND Internal Medicine Cardiovascular Disease
PROC: CLCCHCL (ICD-10-PCS; 2016-10-01 23:45)